=== PATIENT | female | born 1995 | race Caucasian/White ===

== ENCOUNTER 2017-10-23 16:54 | Emergency (ER) | payer OTHER ==
[~2017-10-23] VITALS: Ht 149.9 cm; Wt 59.0 kg
== END 2017-10-23 20:37 | disposition home or self-care (01) ==
LOC: ER 16:54
DX: K52.9 Noninfective gastroenteritis and colitis, unspecified (principal)

== ENCOUNTER 2017-12-29 10:29 | Emergency (ER) | payer OTHER ==
[~2017-12-29] VITALS: Ht 149.9 cm; Wt 59.0 kg
[2017-12-29] MEDS ORDERED: CELEBREX100 MG PO (15:04)
[2017-12-29] MEDS ORDERED: SKELAXIN800 MG PO (15:04)
[2017-12-29] MEDS ORDERED: DIAZEPAM10 MG PO (15:04)
== END 2017-12-29 17:34 | disposition home or self-care (01) ==
LOC: ER 10:29
DX: M43.6 Torticollis (principal)

== ENCOUNTER 2018-02-07 13:06 | Emergency (ER) | payer OTHER ==
[~2018-02-07] VITALS: Ht 149.9 cm; Wt 61.2 kg
[~2018-02-07 13:06] MED LIST: CELEBREX100 MG PO; DIAZEPAM10 MG PO; SKELAXIN800 MG PO
== END 2018-02-07 14:51 | disposition home or self-care (01) ==
LOC: EMR PED 13:06 → ER 13:12
DX: A60.04 Herpesviral vulvovaginitis (principal)

== ENCOUNTER 2021-02-09 13:08 | Emergency (ER) | payer OTHER ==
[~2021-02-09] VITALS: Ht 149.9 cm; Wt 72.6 kg
[2021-02-09] MEDS ORDERED: SKELAXIN800 MG PO (16:37)
[2021-02-09] MEDS ORDERED: IBU400 MG PO (16:37)
== END 2021-02-09 17:25 | disposition home or self-care (01) ==
LOC: ER 13:08
DX: M54.5 Low back pain (principal); M25.552 Pain in left hip

== ENCOUNTER 2024-12-10 15:58 | Emergency (ER) | payer OTHER ==
[~2024-12-10] VITALS: Ht 149.9 cm; Wt 59.0 kg
[~2024-12-10 15:58] MED LIST changes: +IBU400 MG PO
[2024-12-10] MEDS ORDERED: KETOROLAC TROMETHAMINE 60 MG VIAL IM ONE ×2 (16:37→16:45)
[2024-12-10] MEDS ORDERED: CEFTRIAXONE SODIUM 1,000 MG VIAL ONE (16:38)
[2024-12-10] MEDS ORDERED: CEFTRIAXONE SODIUM 1,000 MG VIAL IM ONE (16:45)
== END 2024-12-10 17:23 | disposition home or self-care (01) ==
LOC: ER 15:58
DX: K02.9 Dental caries, unspecified (principal); R51.9 Headache, unspecified